=== PATIENT | female | born 2000 | race Caucasian/White ===

== ENCOUNTER → 2021-03-10 | Outpatient (CLI) | payer OTHER ==
[~2021-03-10] MED LIST: MONONESSA PO; PRILOSEC OTC20 MG PO; PRISTIQ50 MG PO; REXULTI1 MG PO; TRAZODONE HCL50 MG PO; VYVANSE30 MG PO
== END ==
LOC: LAB 10:08
PROVIDERS: ATTEND Orthopaedic Surgery Hand Surgery
DX: Z01.812 Encounter for preprocedural laboratory examination (principal); Z20.822 Contact with and (suspected) exposure to COVID-19

== ENCOUNTER → 2021-03-13 | Day surgery (SDC) | payer OTHER ==
[~2021-03-13] VITALS: Ht 167.6 cm; Wt 152.0 kg
[2021-03-13 13:45] VITALS: BP 143/85
[2021-03-13 16:08] VITALS: BP 143/85
--- NOTE | 2021-03-21 13:02 | O ---
[facility] [place] [address] OPERATIVE REPORT Name: YANDY WILLOUGHBY Room #: [facility].#: [id number] Admission: 03/13/21 Attend Phys: Marti Shay, Discharge: Date of : 89 Report #: [id number] THIS REPORT FOR: cc: FAM - Family physician unknown FAM - Family physician unknown Marti Shay MD ~ DOC #: [id number] Marti Shay MD DATE OF SERVICE: 03/13/2021 PREOPERATIVE DIAGNOSIS: Right de Quervain's tenosynovitis. POSTOPERATIVE DIAGNOSIS: Right de Quervain tenosynovitis. PROCEDURE PERFORMED: Right first dorsal compartment release. SURGEON: Marti Shay MD ANESTHESIA: Local MAC anesthesia. ESTIMATED BLOOD LOSS: Minimal. TOURNIQUET TIME: Approximately 10 minutes. Please see intraoperative record. COMPLICATIONS: None. CONDITION: Stable. DISPOSITION: To recovery room. INDICATIONS: The patient is a 20-year-old female who has failed nonoperative treatment and wishes for operative intervention. The risks, benefits, alternatives and complications were discussed including but not limited to infection, damage to vessels or nerves, incomplete relief or worsening of any symptoms. Informed consent was obtained. The correct extremity was identified and leveled myself after verbal confirmation of the patient as well as visual confirmation and signed informed consent. DESCRIPTION OF PROCEDURE: The patient was brought back to the operating room and placed in the operating table in supine position. She received preoperative antibiotics. Tourniquet was placed over padding on the patient's right upper extremity. Right upper extremity was sterilely prepped and draped in the usual fashion. Final timeout was taken to verify correct patient, procedure, operative site, all concurred. After adequate sedation was achieved, a total of approximately 5 mL of 0.25% Marcaine and 1% lidocaine was injected in subcutaneous tissue. She tolerated this well. The arm was elevated, [facility] [address] [place] [address] OPERATIVE REPORT Name: YANDY WILLOUGHBY Room #: [facility].#: [id number] Admission: 03/13/21 Attend Phys: Marti Shay, Discharge: Date of : [birth year] Report #: [id number] exsanguinated and the tourniquet inflated. Next, an approximately 3 cm transverse incision was made at the radial styloid. Dissection was carried down through subcutaneous tissue with tenotomy scissors. Sensory nerve was identified and carefully protected the dorsal aspect of the first dorsal compartment was carefully identified and incised. Next, the EPB tendon was identified in a second compartment and it was released as well. Once this was all the way ____ 2 cm proximal to the radial styloid. The tendons glided smoothly. There was no subluxation with wrist flexion and extension. The wound was thoroughly irrigated. Skin was closed with 4-0 nylon suture. Wound was dressed with Adaptic and sterile gauze. She was placed in a bulky dressing and a volar slab splint. All fingers were pink, brisk capillary refill at the conclusion of the case after deflation of tourniquet. All sponge and needle counts were correct. The patient transferred to postoperative recovery room in stable condition. MD KIRILL Larkin/FARHAD/DAVE <ELECTRONICALLY SIGNED> By: Marti Shay MD 03/21/21 1302 [id number] Marti Shay MD /nt
== END | disposition home or self-care (01) ==
LOC: OR 12:02
PROVIDERS: ATTEND Orthopaedic Surgery Hand Surgery
DX: M65.4 Radial styloid tenosynovitis [de Quervain] (principal); D64.9 Anemia, unspecified; J45.909 Unspecified asthma, uncomplicated; F32.9 Major depressive disorder, single episode, unspecified; F41.9 Anxiety disorder, unspecified; K21.9 Gastro-esophageal reflux disease without esophagitis; Z98.890 Other specified postprocedural states; Z79.899 Other long term (current) drug therapy; Z90.49 Acquired absence of other specified parts of digestive tract; Z88.8 Allergy status to other drugs, medicaments and biological substances
CPT/HCPCS: 50010; 50101; 50386; 51736; 56526; 57006; 57091; 57179; 62110; 62850; 70005